=== PATIENT | female | born 1950 | race Caucasian/White ===

== ENCOUNTER 2024-04-11 14:56 | Outpatient (CLI) | payer MEDICARE, MEDICAID, SELFPAY ==
[2024-04-11 15:41] LABS: Basophils Absolute Auto 0.1 K/mm3 (0.0-0.1); Basophils Percent Auto 0.6 % (0.2-1.2); Eosinophils Absolute Auto 0.1 K/mm3 (0-0.3); Eosinophils Percent Auto 0.8 % (0-4.4); Hematocrit 40.5 % (37.0-47.0); Hemoglobin 13.2 g/dL (12.0-15.0); Immature Granulocyte Absolute 0.03 K/mm3 (0.00-0.031); Immature Granulocyte Percent A 0.4 % (0-0.5); Lymphocytes Percent Auto 28.6 % (18.3-44.2); Mean Corpuscular HGB Conc 32.6 g/dl (32-36); Mean Corpuscular Hemoglobin 31.6 pg (26-34); Mean Corpuscular Volume 96.9 fl (80-100); Mean Platelet Volume 10.2 fl (7.4-10.4); Monocytes Absolute Auto 0.9 K/mm3 (0.1-0.6); Monocytes Percent Auto 11.1 % (2.6-8.5); Neutrophils Absolute Auto 4.9 K/mm3 (1.3-6.7); Neutrophils Percent Auto 58.5 % (45.5-73.1); Platelet Count Result 322 k/mm3 (150-375); Red Blood Count 4.18 M/mm3 (4.2-5.4); Red Cell Distribution Width 12.5 % (11.5-14.5); White Blood Count 8.4 K/mm3 (4.5-10.0)
[2024-04-11 15:42] LABS: Alanine Aminotransferase 22 U/L (6-35); Albumin Level 4.3 g/dL (3.5-5.1); Alkaline Phosphatase 76 U/L (38-126); Anion Gap 11 mmol/L (4-12); Aspartate Amino Transferase 31 U/L (14-36); Bilirubin,Total 0.3 mg/dL (0.2-1.3); Blood Urea Nitrogen 14 mg/dL (7-17); Calcium 9.3 mg/dL (8.4-10.2); Carbon Dioxide 29 mmol/L (22-30); Chloride 94 mmol/L (98-107); Estimated Glomerular Filt Rate 44; Glucose 103 mg/dL (65-110); Potassium 4.3 mmol/L (3.4-5.0); Sodium 134 mmol/L (137-145)
[2024-04-11 15:56] LABS: Erythrocyte Sedimentation Rate 19 mm/hr (0-20)
== END 2024-04-11 14:57 | disposition home or self-care (01) ==
LOC: ANHLAB 15:03
PROVIDERS: PCP Internal Medicine; Visit Provider Nurse Practitioner
DX: R19.7 Diarrhea, unspecified (principal); E86.0 Dehydration
CPT/HCPCS: 36415; 80053; 85025; 85652

== ENCOUNTER 2024-04-12 08:12 | Outpatient (CLI) | payer MEDICARE, MEDICAID, SELFPAY ==
[2024-04-12 09:50] LABS: Toxigenic C. Diff NEGATIVE (NEGATIVE)
[2024-04-18 14:58] LABS: Trichrome Ova and Parasites STATUS: FINAL
== END 2024-04-12 08:13 | disposition home or self-care (01) ==
LOC: ANHLAB 08:14
PROVIDERS: PCP Internal Medicine; Visit Provider Nurse Practitioner
DX: R19.7 Diarrhea, unspecified (principal); E86.0 Dehydration
CPT/HCPCS: 87045; 87177; 87209; 87427; 87449; 87493; 89055

== ENCOUNTER 2024-04-24 01:12 | Day surgery (SDC) | payer MEDICARE, MEDICAID, SELFPAY ==
[2024-04-18 08:52] VITALS: BMI 27.5
[2024-04-24 07:55] VITALS: BP 140/76; PULSE 74; RESP 18; TEMP 36.2; O2SAT 100
[2024-04-24] MEDS: LACTATED RINGERS 1,000 ML 150 ML IV CONT (08:06)
--- NOTE | 2024-04-24 08:07 | WPDANESEPPF ---
Anes - Initial Pre Proc Eval Procedure: Operation Date: 04/24/24 09:00 Proposed Procedures p Esophagogastroduodenoscopy - James Cuenca MD Date/Time: 04/24/24 08:07 Surgeon: James Cuenca MD Pre Op Diagnosis: Melena Patient Data Age: 73 Gender: F Height: 1.57 m Weight: 69.4 kg Last Vital Signs Temp 97.2 F L 04/24/24 07:55 Pulse 74 04/24/24 07:55 Resp 18 04/24/24 07:55 BP 140/76 04/24/24 07:55 Pulse Ox 100 04/24/24 07:55 O2 Del Method Room Air 04/24/24 07:55 Allergies Allergy/AdvReac Type Severity Reaction Status Date / Time latex Allergy Intermediate SWELLING, Verified 04/24/24 07:54 ITCHING, REDNESS adhesive Allergy Unknown RASH Verified 04/24/24 07:54 codeine Allergy Nausea and Verified 04/24/24 07:54 Vomiting Home Medications Medication Instructions Recorded Confirmed Type clonidine HCl 0.2 mg tablet 0.2 mg PO BID #60 tabs 02/01/24 04/24/24 Rx hydrochlorothiazide 25 mg tablet 25 mg PO DAILY #30 tabs 02/01/24 04/24/24 Rx lisinopril 10 mg tablet 10 mg PO DAILY #30 tabs 02/01/24 04/24/24 Rx omeprazole 20 mg capsule,delayed See Rx Instructions .Route 02/01/24 04/24/24 Rx release .COMPLEX #60 caps simvastatin 10 mg tablet 10 mg PO DAILY #60 tabs 02/01/24 04/24/24 Rx Patient hx anesthesia problems: none Family hx anesthesia problems: none Results Review: All pre-operative results and documents have been reviewed as part of the pre-operative evaluation. [facility] Past Medical History Medical History Allergies Arthritis GERD (gastroesophageal reflux disease) HTN (hypertension) Hyperglycemia Hyperlipidemia Surgical History Surgical History H/O partial thyroidectomy S/P complete hysterectomy Family History Family History Mother , 93 Alzheimer disease Father , 88 COPD (chronic obstructive pulmonary disease) Varicose vein of leg Sibling Heart attack Social History Social History (Updated 07/11/23 @ 10:06 by Bre Duran) Social History: Caffeine- coffee Smoking packs per day: 0.5 Smoking cigarettes per day: 10.0 Years smoked: 40 Smoking pack-years: 20.00 Smoking status: Former smoker Tobacco type: cigarettes Smoking end date: 08/22/07 Alcohol intake: current Drinks per week: 2 Alcohol use details: occasionally Substance use: never Substance use type: does not use Lack of Transportation: No Lack of Food: Never True Current Housing: I Have Housing Concerned About Future Housing: No Difficulty Paying Gas/Electric Bills: No Difficulty Paying for Meds: No Currently Unemployed: No Education: High School Diploma/GED Difficulty w/ Childcare or Family Care: No Living arrangements: alone Anes - Eval Final PreProcedure Day of Procedure 04/24/24 08:07 Patient weight: normal Heart: regular rate and rhythm Lungs: clear to auscultation Airway: Mallampati scale class II Neurological: alert and oriented Last oral intake: >/= 8 hours ASA classification: III Emergent: no Anesthetic plan: proceed Anesthesia type and monitoring: general GIVS and standard monitoring Results Review: All pre-operative results and documents have been reviewed as part of the pre-operative evaluation. Informed Consent: The patient's anesthetic plan and its attendant risks and benefits were discussed with the patient/family/POA. Questions were solicited and answers provided to the satisfaction of the patient/family/POA.
--- NOTE | 2024-04-24 08:29 | PM.HPGS ---
History of Present Illness History of Present Illness Consent: Risks, benefits, and alternatives have been discussed and questions answered. Patient agrees to proceed with procedure. Chief complaint: Melena Narrative: No Rees is a 73 year old female with recent episode of dark stool, she is using omeprazole. About 20 years ago was told that she had hole in esophagus Review of Systems Review of Systems: All systems reviewed & are unremarkable except as noted in HPI and below PMFSH Past Medical History Medical History Allergies Arthritis GERD (gastroesophageal reflux disease) HTN (hypertension) Hyperglycemia Hyperlipidemia Surgical History Surgical History H/O partial thyroidectomy S/P complete hysterectomy Family History Family History Mother , 93 Alzheimer disease Father , 88 COPD (chronic obstructive pulmonary disease) Varicose vein of leg Sibling Heart attack Social History Social History (Updated 07/11/23 @ 10:06 by Bre Duran) Social History: Caffeine- coffee Smoking packs per day: 0.5 Smoking cigarettes per day: 10.0 Years smoked: 40 Smoking pack-years: 20.00 Smoking status: Former smoker Tobacco type: cigarettes Smoking end date: 08/22/07 Alcohol intake: current Drinks per week: 2 Alcohol use details: occasionally Substance use: never Substance use type: does not use Lack of Transportation: No Lack of Food: Never True Current Housing: I Have Housing Concerned About Future Housing: No Difficulty Paying Gas/Electric Bills: No Difficulty Paying for Meds: No Currently Unemployed: No Education: High School Diploma/GED Difficulty w/ Childcare or Family Care: No Living arrangements: alone Meds Home Medications and Allergies Home Medications Medication Instructions Recorded Confirmed Type clonidine HCl 0.2 mg tablet 0.2 mg PO BID #60 tabs 02/01/24 04/24/24 Rx hydrochlorothiazide 25 mg tablet 25 mg PO DAILY #30 tabs 02/01/24 04/24/24 Rx lisinopril 10 mg tablet 10 mg PO DAILY #30 tabs 02/01/24 04/24/24 Rx omeprazole 20 mg capsule,delayed See Rx Instructions .Route 02/01/24 04/24/24 Rx release .COMPLEX #60 caps simvastatin 10 mg tablet 10 mg PO DAILY #60 tabs 02/01/24 04/24/24 Rx Allergies Allergy/AdvReac Type Severity Reaction Status Date / Time latex Allergy Intermediate SWELLING, Verified 04/24/24 07:54 ITCHING, REDNESS adhesive Allergy Unknown RASH Verified 04/24/24 07:54 codeine Allergy Nausea and Verified 04/24/24 07:54 Vomiting Vital Signs Vital Signs - 24 hr 04/24/24 07:55 Temperature 97.2 F L Pulse Rate 74 Respiratory Rate 18 Blood Pressure 140/76 Pulse Oximetry 100 Oxygen Delivery Room Air Assessment and Plan Assessment and plan (1) Black tarry stools: Code(s): K92.1 - Melena Status: Acute Assessment and Plan: egd
[2024-04-24 08:47] VITALS: BP 111/66; PULSE 77; RESP 21; O2SAT 100
[2024-04-24 08:57] VITALS: BP 110/59; PULSE 72; RESP 25; O2SAT 100
[2024-04-24 09:06] VITALS: BP 148/78; PULSE 74; RESP 18; O2SAT 100
== END 2024-04-24 09:12 | disposition home or self-care (01) ==
PROVIDERS: PCP Internal Medicine; Referring Provider Nurse Practitioner; Visit Provider Internal Medicine Gastroenterology
PROC: 0DJ08ZZ Inspection of Upper Intestinal Tract, Via Natural or Artificial Opening Endoscopic (ICD-10-PCS; CPT 43235; principal; 2024-04-24 09:00)
DX: K44.9 Diaphragmatic hernia without obstruction or gangrene (principal); K92.1 Melena; K21.9 Gastro-esophageal reflux disease without esophagitis; I10 Essential (primary) hypertension; E78.5 Hyperlipidemia, unspecified; Z87.891 Personal history of nicotine dependence
CPT/HCPCS: 43239; 88305; J2704; J7120